=== PATIENT | female | born 1970 | race Caucasian/White ===

== ENCOUNTER → 2020-12-24 | Outpatient (CLI) | payer OTHER | LOC: HEART 5 07:40 | DX: I20.9 Angina pectoris, unspecified (principal); R06.02 Shortness of breath; I08.2 Rheumatic disorders of both aortic and tricuspid valves | CPT/HCPCS: 78452; 93306; A9502; J2785 ==

== ENCOUNTER → 2021-06-18 | Outpatient (CLI) | payer OTHER ==
[~2021-06-18] MED LIST: BUPROPION XL150 MG PO; BUSPIRONE HCL30 MG PO; CETIRIZINE HCL10 MG PO; COREG 25MG TAB25 MG PO; ENTRESTO 49 MG1 EACH PO; FLUOXETINE HCL20 M1 PO; GABAPENTIN300 MG PO; ISOSORBIDE MONO30 MG PO; NITROGLYCERIN0.4 MG SL; PREMPRO 0.45-11 EACH PO; SERTRALINE HCL50 MG PO; SPIRONOLACTONE50 MG PO; TRULICITY1.5 MG/0.5 SQ; VITAMIN B-121000 MCG PO
[2021-06-18 15:10] LABS: HEMOGLOBIN 13.6 gm/dl (12.3-15.3); RED BLOOD COUNT 4.71 M/UL (4.00-5.10); WHITE BLOOD COUNT 5.4 K/UL (4.5-11.0)
[2021-06-18 15:54] LABS: BUN/CREATININE RATIO 13 (0-10)
== END ==
LOC: RAD 14:23
PROVIDERS: Internal Medicine Cardiovascular Disease
DX: I42.0 Dilated cardiomyopathy (principal); I20.9 Angina pectoris, unspecified; I10 Essential (primary) hypertension; R94.39 Abnormal result of other cardiovascular function study
CPT/HCPCS: 36415; 71046; 80048; 85025

== ENCOUNTER → 2021-06-20 | Outpatient (CLI) | payer OTHER | LOC: CATH 08:11 | DX: I20.8 Other forms of angina pectoris (principal); I42.0 Dilated cardiomyopathy; I42.8 Other cardiomyopathies; I11.0 Hypertensive heart disease with heart failure; I50.22 Chronic systolic (congestive) heart failure; E11.9 Type 2 diabetes mellitus without complications; I47.2 Ventricular tachycardia; I49.01 Ventricular fibrillation; Z95.810 Presence of automatic (implantable) cardiac defibrillator; Z79.899 Other long term (current) drug therapy | CPT/HCPCS: 99152; C1769; C1894; J1644; J2250; J3010; J7040; Q9967 ==

== ENCOUNTER → 2022-04-10 | Outpatient (CLI) | payer OTHER | LOC: RAD 11:43 | DX: M17.12 Unilateral primary osteoarthritis, left knee (principal) | CPT/HCPCS: 73560 ==